=== PATIENT | female | born 1960 | race Caucasian/White ===

== ENCOUNTER 2025-01-28 17:21 | Emergency (ER) | payer OTHER ==
[~2025-01-28] VITALS: Ht 165.1 cm; Wt 125.0 kg
[2025-01-28 17:25] VITALS: O2SAT 100
[2025-01-28] MEDS: IBUPROFEN 600MG TABLET PO ONE (20:22)
[2025-01-28] MEDS: METHOCARBAMOL 500MG TABLET PO ONE (20:30)
[2025-01-28] MEDS ORDERED: TIRZ15PE3 (20:38)
[2025-01-28] MEDS ORDERED: CARV3.1242 MT (20:38)
[2025-01-28] MEDS ORDERED: LISI10TA26 MT (20:38)
[2025-01-28] MEDS ORDERED: ATOR20TA MT (20:38)
[2025-01-28] MEDS ORDERED: IBUP-1455 MT (21:23)
[2025-01-28] MEDS ORDERED: METH-653 MT (21:23)
[2025-01-28] MEDS ORDERED: LIDO700A30 TP (21:23)
[2025-01-28 21:40] VITALS: BP 125/80; PULSE 69; RESP 15; TEMP 37; O2SAT 100
== END 2025-01-28 21:42 | disposition home or self-care (01) ==
LOC: ER 17:21
DX: S13.4XXA Sprain of ligaments of cervical spine, initial encounter (principal); S20.219A Contusion of unspecified front wall of thorax, initial encounter; Z79.899 Other long term (current) drug therapy; Z95.2 Presence of prosthetic heart valve; V89.2XXA Person injured in unspecified motor-vehicle accident, traffic, initial encounter; Y93.89 Activity, other specified; Y92.410 Unspecified street and highway as the place of occurrence of the external cause; Y99.8 Other external cause status
CPT/HCPCS: 71045; 99284